=== PATIENT | female | born 1985 | race African-American/Black ===

== ENCOUNTER → 2016-10-09 | Outpatient (CLI) | payer BC | LOC: WI 12:45 | PROVIDERS: ATTEND Registered Nurse General Practice | DX: N63 Unspecified lump in breast (principal); Z80.3 Family history of malignant neoplasm of breast | CPT/HCPCS: 76642; G0204; 77066 ==

== ENCOUNTER 2017-01-09 21:39 | Emergency (ER) | payer BC ==
[2017-01-09] MEDS ORDERED: ASPIRIN 81 MG TABLET, CHEWABLE PO ONE (22:22)
[2017-01-09 22:47] LABS: ABSOLUTE BASOPHILS # (AUTO) 0.1 10^3/uL (0.0-0.2); ABSOLUTE EOSINOPHILS # (AUTO) 0.2 10^3/uL (0.0-0.6); ABSOLUTE LYMPHOCYTES (AUTO) 3.5 10^3/uL (0.5-4.7); ABSOLUTE MONOCYTES (AUTO) 0.9 10^3/uL (0.1-1.4); ABSOLUTE NEUT (AUTO) 7.2 10^3/uL (1.7-8.2); BASOPHILS % (AUTO) 0.7 % (0-2); EOSINOPHILS % (AUTO) 1.4 % (0-6); HEMATOCRIT 39.7 % (36.0-47.0); HEMOGLOBIN 12.7 g/dL (12.0-15.5); HGB HCT DIFFERENCE -1.6; LYMPHOCYTES % (AUTO) 29.2 % (13-45); MEAN CORPUSCULAR HEMOGLOBIN 27.6 pg (27.0-33.4); MEAN CORPUSCULAR VOLUME 86 fl (80-97); RED BLOOD COUNT 4.59 10^6/uL (3.72-5.28); RED CELL DISTRIBUTION WIDTH 15.9 % (11.5-14.0); SEGMENTED NEUTROPHILS % (AUTO) 60.7 % (42-78); WHITE BLOOD COUNT 11.9 10^3/uL (4.0-10.5)
--- NOTE | 2017-01-09 23:03 | RADIOLOGY REPORT (SQ) ---
EXAM DESCRIPTION: CHEST SINGLE VIEW COMPLETED DATE/TIME: 01/09/2017 10:48 pm REASON FOR STUDY: chest pain COMPARISON: 10/11/2015 EXAM PARAMETERS: NUMBER OF VIEWS: One view. TECHNIQUE: Single frontal radiographic view of the chest acquired. RADIATION DOSE: NA LIMITATIONS: None. FINDINGS: LUNGS AND PLEURA: No acute opacities, masses or pneumothorax. No pleural effusion. MEDIASTINUM AND HILAR STRUCTURES: No masses. Contour normal. HEART AND VASCULAR STRUCTURES: Heart normal in size. Normal vasculature. BONES: No acute findings. HARDWARE: None in the chest. OTHER: No other significant finding. IMPRESSION: NO ACUTE RADIOGRAPHIC FINDING IN THE CHEST. TECHNICAL DOCUMENTATION: JOB ID: [id number]
[2017-01-09 23:10] LABS: ALANINE AMINOTRANSFERASE 34 U/L (9-52); ALBUMIN 3.6 g/dL (3.5-5.0); ALKALINE PHOSPHATASE 103 U/L (38-126); ANION GAP 9 (5-19); ASPARTATE AMINO TRANSFERASE 21 U/L (14-36); BILIRUBIN,DIRECT 0.2 mg/dL (0.0-0.4); BILIRUBIN,TOTAL 0.2 mg/dL (0.2-1.3); BLOOD UREA NITROGEN 14 mg/dL (7-20); CALCIUM 9.4 mg/dL (8.4-10.2); CARBON DIOXIDE 26 mmol/L (22-30); CHLORIDE 105 mmol/L (98-107); CREATINE KINASE 207 U/L (30-135); CREATININE RESULT 0.66 mg/dL (0.52-1.25); GLUCOSE 105 mg/dL (75-110); POTASSIUM 3.9 mmol/L (3.6-5.0); SODIUM 139.7 mmol/L (137-145); TOTAL PROTEIN 7.2 g/dL (6.3-8.2)
[2017-01-09 23:22] LABS: CREATINE KINASE MB 0.47 ng/mL (<4.55)
[2017-01-09 23:24] LABS: TROPONIN I < 0.012 ng/mL
--- NOTE | 2017-01-10 00:21 | ER Document Report ---
ED General - General Chief Complaint: Chest Pain Stated Complaint: CHEST PAIN Time Seen by Provider: 01/10/17 00:12 Mode of Arrival: Ambulatory Information source: Patient, Friend TRAVEL OUTSIDE OF THE [place] IN LAST 30 DAYS: No - HPI Notes: Patient is a 31-year-old black female history of insulin resistance presents emergency department with report that she was at dinner having a conversation about her work and was somewhat stressed and anxious while at rest and noticed a 1 minute episode of chest pain that came on at 1900 with resolution and then later again at 2030 she was again talking about work she had the same 1 minute episode of chest pain. She reports no dyspnea, nausea, vomiting, cough, belching, radiation of the pain or back pain. She reports no fever or chills. Patient's non-smoker family history mother age 68 with a stroke no family history of cardiac disease. Patient has history of prediabetic state and asthma. - Related Data Allergies/Adverse Reactions: No Known Allergies Allergy (Verified 11/21/15 17:36) Past Medical History - General Information source: Patient - She - Social History Smoking Status: Never Smoker Frequency of alcohol use: Rare Drug Abuse: None Lives with: Friend Family History: Reviewed & Not Pertinent Patient has suicidal ideation: No Patient has homicidal ideation: No - Past Medical History Cardiac Medical History: Reports: Hx Hypertension Denies: Hx Congestive Heart Failure, Hx Coronary Artery Disease, Hx Heart Attack Pulmonary Medical History: Reports: Hx Asthma Denies: Hx Bronchitis, Hx COPD, Hx Pneumonia, Hx Tuberculosis Neurological Medical History: Denies: Hx Cerebrovascular Accident, Hx Seizures Endocrine Medical History: Reports: Hx Diabetes Mellitus Type 2 Renal/ Medical History: Denies: Hx End Stage Renal Disease, Hx Kidney Stones, Hx Peritoneal Dialysis GI Medical History: Denies: Hx Cirrhosis, Hx Gastroesophageal Reflux Disease, Hx Ulcer Musculoskeltal Medical History: Denies Hx Arthritis, Denies Hx Multiple Sclerosis Psychiatric Medical History: Denies: Hx Bipolar Disorder, Hx Depression, Hx Schizophrenia Past Surgical History: Reports: Hx Gynecologic Surgery - dnc, Hx Oral Surgery - Immunizations Hx Diphtheria, Pertussis, Tetanus Vaccination: Yes Review of Systems - Review of Systems Notes: REVIEW OF SYSTEMS: CONSTITUTIONAL : Denies fever, chills, or sweats. Denies recent illness. EENT: Denies eye, ear, throat, or mouth pain or symptoms. Denies nasal or sinus congestion or discharge. Denies throat, tongue, or mouth swelling or difficulty swallowing. CARDIOVASCULAR: Denies palpitations or racing or irregular heart beat. Denies ankle edema. RESPIRATORY: Denies cough, cold, or chest congestion. Denies shortness of breath, difficulty breathing, or wheezing. GASTROINTESTINAL: Denies abdominal pain or distention. Denies nausea, vomiting , or diarrhea. Denies blood in vomitus, stools, or per rectum. Denies black, tarry stools. Denies constipation. GENITOURINARY: Denies difficulty urinating, painful urination, burning, frequency, blood in urine, or discharge. FEMALE GENITOURINARY: Denies vaginal bleeding, heavy or abnormal periods, irregular periods. Denies vaginal discharge or odor. MUSCULOSKELETAL: Denies back or neck pain or stiffness. Denies joint pain or swelling. SKIN: Denies rash, lesions or sores. HEMATOLOGIC : Denies easy bruising or bleeding. LYMPHATIC: Denies swollen, enlarged glands. NEUROLOGICAL: Denies confusion or altered mental status. Denies passing out or loss of consciousness. Denies dizziness or lightheadedness. Denies headache. Denies weakness or paralysis or loss of use of either side. Denies problems with gait or speech. Denies sensory loss, numbness, or tingling. Denies seizures. PSYCHIATRIC: Denies depression, suicidal ideation, or homicidal ideation. ALL OTHER SYSTEMS REVIEWED AND NEGATIVE. Dictation was performed using [employer] voice recognition software Physical Exam - Vital signs Vitals: Temp Pulse Resp BP Pulse Ox 97.5 F 85 20 134/88 H 100 01/09/17 22:18 01/09/17 22:18 01/09/17 22:18 01/09/17 22:18 01/09/17 22:18 - Notes Notes: PHYSICAL EXAMINATION: GENERAL: Well-appearing, well-nourished and in no acute distress. HEAD: Atraumatic, normocephalic. EYES: Pupils equal round and reactive to light, extraocular movements intact, conjunctiva are normal. ENT: Nares patent, oropharynx clear without exudates. Moist mucous membranes. NECK: Normal range of motion, supple without lymphadenopathy LUNGS: Breath sounds clear to auscultation bilaterally and equal. No wheezes rales or rhonchi. HEART: Regular rate and rhythm without murmurs. Mildly reproducible anterior chest wall pain.. No crepitance or bony deformity. ABDOMEN: Soft, nontender, nondistended abdomen. No guarding, no rebound. No masses appreciated. Female : deferred Musculoskeletal: Normal range of motion, no pitting or edema. No cyanosis. Negative Homans. No palpable cord. NEUROLOGICAL: Cranial nerves grossly intact. Normal speech, normal gait. Normal sensory, motor exams PSYCH: Normal mood, normal affect. SKIN: Warm, Dry, normal turgor, no rashes or lesions noted. Course - Re-evaluation Re-evalutation: 01/10/17 00:45 Patient given Xanax 0.5 mg. 01/10/17 04:36 After Xanax, the patient was relaxed and denies any other further symptoms. No obvious evidence for acute NE or ischemia or electrolyte imbalance or anemia. Patient was ambulatory without complaint. She is otherwise low risk for cardiac ischemia. Findings bit more so with a anxiety component. No evidence for pneumonia or congestive heart failure or suggestion for pulmonary embolus given the transient discomfort which came on at rest 01/10/17 04:53 - Vital Signs Vital signs: Temp Pulse Resp BP Pulse Ox 97.5 F 85 20 134/88 H 100 01/09/17 22:18 01/09/17 22:18 01/09/17 22:18 01/09/17 22:18 01/09/17 22:18 - Laboratory Result Diagrams: 01/09/17 22:30 01/09/17 22:30 Laboratory results interpreted by me: 01/09/17 01/09/17 22:30 22:30 WBC 11.9 H RDW 15.9 H Creatine Kinase 207 H - Diagnostic Test Radiology reviewed: Reports reviewed - EKG Interpretation by Ma EKG shows normal: Sinus rhythm Additional EKG results interpreted by me: 01/10/17 00:46 EKG #1 as interpreted by nh at 2152 showed normal sinus rhythm heart of 87, there was no gross evidence for acute NE or ischemia. There was unchanged inferior T-wave findings with comparison made to previous EKG from 10/15/15. There is no evidence for any change from prior EKG. 01/10/17 02:37 Discharge - Discharge Clinical Impression: Anxiety Chest pain Qualifiers: Chest pain type: unspecified Qualified Code(s): R07.9 - Chest pain, unspecified Disposition: HOME, SELF-CARE Instructions: Chest Pain of Unclear Cause ([facility]), Chest Wall Pain ([facility]), Anxiety ([facility]), Family Physicians / Practices Prescriptions: Alprazolam [Xanax 0.5 mg Tablet] 0.5 mg PO TIDP PRN #20 tablet PRN Reason: Forms: Return to Work
[2017-01-10] MEDS ORDERED: ALPRAZOLAM 0.5 MG TABLET PO ONE (00:41)
[2017-01-10 05:18] VITALS: BP 111/71
--- NOTE | 2017-01-10 07:15 | EKG REPORT ---
SEVERITY:- ABNORMAL ECG - SINUS RHYTHM ABNORMAL T, CONSIDER ISCHEMIA, INFERIOR LEADS : Confirmed by: Porsha Jensen MD 10-Jan-2017 07:14:36
== END 2017-01-10 05:18 | disposition home or self-care (01) ==
LOC: ER 21:39
DX: F41.9 Anxiety disorder, unspecified (principal); R07.89 Other chest pain; J45.909 Unspecified asthma, uncomplicated; I10 Essential (primary) hypertension; E11.9 Type 2 diabetes mellitus without complications
CPT/HCPCS: 36415; 71010; 80053; 82550; 82553; 84484; 84703; 85025; 93005; 93010; 99285

== ENCOUNTER 2017-08-03 10:59 | Emergency (ER) | payer BC ==
[2017-08-03] MEDS ORDERED: OXYCODONE-ACETAMINOPHEN 5-325 MG TABLET PO ONE (11:11)
--- NOTE | 2017-08-03 11:12 | ER Document Report ---
ED Medical Screen (RME) - General Chief Complaint: Abdominal Pain Stated Complaint: ABDOMINAL PAIN Time Seen by Provider: 08/03/17 11:10 Information source: Patient Notes: 32-year-old female who presents today with the onset this morning of some suprapubic and epigastric nonradiating abdominal "tenderness". She also states some white back pain. She denies any dysuria. She states nausea without vomiting or diarrhea. She denies any fevers. On limited examination the patient has no obvious focal tenderness to the abdomen. No rebound or guarding present. No obvious back swelling or CVA tenderness. TRAVEL OUTSIDE OF THE [place] IN LAST 30 DAYS: No - Related Data Allergies/Adverse Reactions: No Known Allergies Allergy (Verified 08/03/17 11:00) Past Medical History - Past Medical History Cardiac Medical History: Reports: Hx Hypertension Denies: Hx Congestive Heart Failure, Hx Coronary Artery Disease, Hx Heart Attack Pulmonary Medical History: Reports: Hx Asthma Denies: Hx Bronchitis, Hx COPD, Hx Pneumonia, Hx Tuberculosis Neurological Medical History: Denies: Hx Cerebrovascular Accident, Hx Seizures Endocrine Medical History: Reports: Hx Diabetes Mellitus Type 2 Renal/ Medical History: Denies: Hx End Stage Renal Disease, Hx Kidney Stones, Hx Peritoneal Dialysis GI Medical History: Denies: Hx Cirrhosis, Hx Gastroesophageal Reflux Disease, Hx Ulcer Musculoskeltal Medical History: Denies Hx Arthritis, Denies Hx Multiple Sclerosis Psychiatric Medical History: Denies: Hx Bipolar Disorder, Hx Depression, Hx Schizophrenia Past Surgical History: Reports: Hx Gynecologic Surgery - dnc, Hx Oral Surgery - Immunizations Hx Diphtheria, Pertussis, Tetanus Vaccination: Yes Physical Exam - Vital signs Vitals: Temp Pulse Resp BP Pulse Ox 98.5 F 107 H 20 142/87 H 98 08/03/17 11:01 08/03/17 11:01 08/03/17 11:01 08/03/17 11:01 08/03/17 11:01 Course - Vital Signs Vital signs: Temp Pulse Resp BP Pulse Ox 98.5 F 107 H 20 142/87 H 98 08/03/17 11:01 08/03/17 11:01 08/03/17 11:01 08/03/17 11:01 08/03/17 11:01
[2017-08-03 12:00] LABS: ABSOLUTE LYMPHOCYTES (AUTO) 1.3 10^3/uL (0.5-4.7); ABSOLUTE MONOCYTES (AUTO) 0.6 10^3/uL (0.1-1.4); ABSOLUTE NEUT (AUTO) 7.4 10^3/uL (1.7-8.2); BASOPHILS % (AUTO) 0.2 % (0-2); EOSINOPHILS % (AUTO) 0.5 % (0-6); HEMATOCRIT 43.7 % (36.0-47.0); HEMOGLOBIN 14.5 g/dL (12.0-15.5); LYMPHOCYTES % (AUTO) 13.8 % (13-45); MEAN CORPUSCULAR HEMOGLOBIN 28.7 pg (27.0-33.4); MEAN CORPUSCULAR HGB CONC 33.2 g/dL (32.0-36.0); MEAN CORPUSCULAR VOLUME 86 fl (80-97); MONOCYTES % (AUTO) 6.2 % (3-13); PLATELET COUNT 336 10^3/uL (150-450); RED BLOOD COUNT 5.06 10^6/uL (3.72-5.28); RED CELL DISTRIBUTION WIDTH 14.9 % (11.5-14.0); SEGMENTED NEUTROPHILS % (AUTO) 79.3 % (42-78); TOTAL CELLS COUNTED % (AUTO) 100 %; WHITE BLOOD COUNT 9.3 10^3/uL (4.0-10.5)
[2017-08-03 12:07] LABS: APPEARANCE,URINE CLOUDY; BILIRUBIN,URINE NEGATIVE (NEGATIVE); COLOR,URINE YELLOW; GLUCOSE, URINE NEGATIVE (NEGATIVE); KETONES,URINE NEGATIVE (NEGATIVE); LEUKOCYTE ESTERASE,URINE NEGATIVE (NEGATIVE); NITRITE,URINE NEGATIVE (NEGATIVE); PROTEIN,URINE 30 mg/dL (NEGATIVE); URINE SPECIFIC GRAVITY 1.024; UROBILINOGEN,URINE NEGATIVE mg/dL (<2.0)
[2017-08-03] MEDS ORDERED: CIPROFLOXACIN HCL 500 MG TABLET PO ONE (12:42)
--- NOTE | 2017-08-03 12:56 | RADIOLOGY REPORT (SQ) ---
EXAM DESCRIPTION: CT LTD RENAL STONE PROTOCOL ON COMPLETED DATE/TIME: 08/03/2017 12:45 pm REASON FOR STUDY: flank pain , hematuria COMPARISON: None. TECHNIQUE: CT scan of the abdomen and pelvis performed without intravenous or oral contrast. Images reviewed with lung, soft tissue, and bone windows. Reconstructed coronal and sagittal MPR images revi ewed. All images stored on PACS. All CT scanners at this facility use dose modulation, iterative reconstruction, and/or weight based d osing when appropriate to reduce radiation dose to as low as reasonably achievable (ALARA). [facility]: Dose Right [facility]: CareDose [facility]: Dose Right [facility]: Teradose 4D [facility]: [employer] RADIATION DOSE: CT Rad equipment meets quality standard of care and radiation dose reduction techniq ues were employed. CTDIvol: 15.1 mGy. DLP: 864 mGy-cm.mGy. LIMITATIONS: None. FINDINGS: LOWER CHEST: No significant findings. No nodules or infiltrates. NON-CONTRASTED LIVER, SPLEEN, ADRENALS: Evaluation limited by lack of IV contrast. No identified sign ificant masses. PANCREAS: No masses. No peripancreatic inflammatory changes. GALLBLADDER: No identified stones by CT criteria. No inflammatory changes to suggest cholecystitis. RIGHT KIDNEY AND URETER: No masses. Renal edema and perinephric stranding. No significant calcific ations. Minimal hydronephrosis. LEFT KIDNEY AND URETER: No suspicious masses. Assessment limited by lack of IV contrast. No signifi cant calcifications. No hydronephrosis or hydroureter. AORTA AND RETROPERITONEUM: No aneurysm. No retroperitoneal masses or adenopathy. BOWEL AND PERITONEAL CAVITY: No obvious masses or inflammatory changes. No free fluid. APPENDIX: Normal. PELVIS, BLADDER, AND ABDOMINAL WALL:No abnormal masses. No free fluid. Bladder normal. BONES: No significant findings. OTHER: No other significant finding. IMPRESSION: There is perinephric stranding and renal edema on the right with very mild hydronephrosi s. No identified calcification in the urinary tract. Etiology of obstruction not identified. COMMENT: Quality ID # [id number]: Final reports with documentation of one or more dose reduction techniques (e.g., Automated exposure control, adjustment of the mA and/or kV according to patient size, use of iterative reconstruction technique) TECHNICAL DOCUMENTATION: JOB ID: [id number]- All Rights Reserved
--- NOTE | 2017-08-03 12:59 | ER Document Report ---
ED General - General Chief Complaint: Abdominal Pain Stated Complaint: ABDOMINAL PAIN Time Seen by Provider: 08/03/17 11:10 Mode of Arrival: Ambulatory Information source: Patient Notes: 32-year-old female presents with complaints of right flank pain suprapubic pain nausea vomiting. Patient's notes the symptoms started yesterday. She does admit to foul-smelling urine of 2 week duration. She denies any fevers. Patient denies any previous similar episodes. TRAVEL OUTSIDE OF THE [place] IN LAST 30 DAYS: No - HPI Onset: Yesterday Onset/Duration: Persistent, Worse Quality of pain: Achy, Burning Severity: Mild Pain Level: 1 Associated symptoms: Nausea, Vomiting Exacerbated by: Other - Urination Relieved by: Denies Similar symptoms previously: No Recently seen / treated by doctor: No - Related Data Allergies/Adverse Reactions: No Known Allergies Allergy (Verified 08/03/17 11:00) Past Medical History - General Information source: Patient - Social History Smoking Status: Never Smoker Cigarette use (# per day): No Chew tobacco use (# tins/day): No Smoking Education Provided: No Frequency of alcohol use: None Drug Abuse: None Family History: Reviewed & Not Pertinent Patient has suicidal ideation: No Patient has homicidal ideation: No - Past Medical History Cardiac Medical History: Reports: Hx Hypertension Denies: Hx Congestive Heart Failure, Hx Coronary Artery Disease, Hx Heart Attack Pulmonary Medical History: Reports: Hx Asthma Denies: Hx Bronchitis, Hx COPD, Hx Pneumonia, Hx Tuberculosis Neurological Medical History: Denies: Hx Cerebrovascular Accident, Hx Seizures Endocrine Medical History: Reports: Hx Diabetes Mellitus Type 2 Renal/ Medical History: Denies: Hx End Stage Renal Disease, Hx Kidney Stones, Hx Peritoneal Dialysis GI Medical History: Denies: Hx Cirrhosis, Hx Gastroesophageal Reflux Disease, Hx Ulcer Musculoskeltal Medical History: Denies Hx Arthritis, Denies Hx Multiple Sclerosis Psychiatric Medical History: Denies: Hx Bipolar Disorder, Hx Depression, Hx Schizophrenia Past Surgical History: Reports: Hx Gynecologic Surgery - dnc, Hx Oral Surgery - Immunizations Hx Diphtheria, Pertussis, Tetanus Vaccination: Yes Review of Systems - Review of Systems Notes: REVIEW OF SYSTEMS: CONSTITUTIONAL : Denies fever, chills, or sweats. Denies recent illness. EENT: Denies eye, ear, throat, or mouth pain or symptoms. Denies nasal or sinus congestion or discharge. Denies throat, tongue, or mouth swelling or difficulty swallowing. CARDIOVASCULAR: Denies chest pain. Denies palpitations or racing or irregular heart beat. Denies ankle edema. RESPIRATORY: Denies cough, cold, or chest congestion. Denies shortness of breath, difficulty breathing, or wheezing. GASTROINTESTINAL: Admits to nausea vomiting flank pain GENITOURINARY: Admits to burning with urination FEMALE GENITOURINARY: Denies vaginal bleeding, heavy or abnormal periods, irregular periods. Denies vaginal discharge or odor. MUSCULOSKELETAL: Denies back or neck pain or stiffness. Denies joint pain or swelling. SKIN: Denies rash, lesions or sores. HEMATOLOGIC : Denies easy bruising or bleeding. LYMPHATIC: Denies swollen, enlarged glands. NEUROLOGICAL: Denies confusion or altered mental status. Denies passing out or loss of consciousness. Denies dizziness or lightheadedness. Denies headache. Denies weakness or paralysis or loss of use of either side. Denies problems with gait or speech. Denies sensory loss, numbness, or tingling. Denies seizures. PSYCHIATRIC: Denies anxiety or stress. Denies depression, suicidal ideation, or homicidal ideation. ALL OTHER SYSTEMS REVIEWED AND NEGATIVE. PHYSICAL EXAMINATION: GENERAL: Well-appearing, well-nourished and in no acute distress. HEAD: Atraumatic, normocephalic. EYES: Pupils equal round and reactive to light, extraocular movements intact, conjunctiva are normal. ENT: Nares patent, oropharynx clear without exudates. Moist mucous membranes. NECK: Normal range of motion, supple without lymphadenopathy LUNGS: Breath sounds clear to auscultation bilaterally and equal. No wheezes rales or rhonchi. HEART: Regular rate and rhythm without murmurs ABDOMEN: Soft, mild suprapubic tenderness right flank pain Female : deferred Musculoskeletal: Normal range of motion, no pitting or edema. No cyanosis. NEUROLOGICAL: Cranial nerves grossly intact. Normal speech, normal gait. Normal sensory, motor exams PSYCH: Normal mood, normal affect. SKIN: Warm, Dry, normal turgor, no rashes or lesions noted. Dictation was performed using [employer] voice recognition software Physical Exam - Vital signs Vitals: Temp Pulse Resp BP Pulse Ox 98.5 F 107 H 20 142/87 H 98 08/03/17 11:01 08/03/17 11:01 08/03/17 11:01 08/03/17 11:01 08/03/17 11:01 Course - Re-evaluation Re-evalutation: 08/03/17 14:[address] Patient was sent for CT given the amount of blood that I saw, mild pyelonephritis is noted on the CT, overall patient looks well will be treated for pyelonephritis Very strict return precautions have been provided to the patient was she and family member stated understanding will return if there are any other concerns After performing a Medical Screening Examination, I estimate there is LOW risk for ACUTE APPENDICITIS, BOWEL OBSTRUCTION, ACUTE CHOLECYSTITIS, PERFORATED DIVERTICULITIS, INCARCERATED HERNIA, PANCREATITIS, PELVIC INFLAMMATORY DISEASE, PERFORATED ULCER, ECTOPIC , or TUBO-OVARIAN ABSCESS, thus I consider the discharge disposition reasonable. Also, there is no evidence or peritonitis , sepsis, or toxicity. I have reevaluated this patient multiple times and no significant life threatening changes are noted. The patient and I have discussed the diagnosis and risks, and we agree with discharging home with close follow-up with the understanding that symptoms and presentations can change. We also discussed returning to the Emergency Department immediately if new or worsening symptoms occur. We have discussed the symptoms which are most concerning (e.g., bloody stool, fever, changing or worsening pain, vomiting) that necessitate immediate return. - Vital Signs Vital signs: Temp Pulse Resp BP Pulse Ox 98.5 F 99 19 149/98 H 100 08/03/17 11:01 08/03/17 13:07 08/03/17 13:07 08/03/17 13:07 08/03/17 13:07 - Laboratory Result Diagrams: 08/03/17 11:35 08/03/17 11:35 Laboratory results interpreted by me: 08/03/17 08/03/17 11:35 11:35 RDW 14.9 H Seg Neutrophils % 79.3 H Urine Protein 30 H Urine Blood LARGE H - Diagnostic Test Radiology reviewed: Image reviewed, Reports reviewed Discharge - Discharge Clinical Impression: Pyelonephritis Nausea & vomiting Qualifiers: Vomiting type: unspecified Vomiting Intractability: non-intractable Qualified Code(s): R11.2 - Nausea with vomiting, unspecified Condition: Stable Disposition: HOME, SELF-CARE Instructions: Pyelonephritis ([facility]) Additional Instructions: Follow up with your physician tomorrow for further care or return to the ED IMMEDIATELY if symptoms worsen or new concerns occur. If you cannot afford to follow up with your primary care physician a list of low cost clinics have been provided at the end of your discharge papers as well. Prescriptions: Ciprofloxacin HCl [Cipro 500 mg Tablet] 500 mg PO BID #20 tablet Hydrocodone/Acetaminophen [Downing 5-325 mg Tablet] 1 tab PO Q6 #10 tablet Metoclopramide HCl [Reglan 10 mg Tablet] 1 - 2 tab PO ASDIR PRN #14 tablet PRN Reason:
[2017-08-03 13:11] VITALS: BP 149/98
== END 2017-08-03 13:11 | disposition home or self-care (01) ==
LOC: ER 10:59
DX: N12 Tubulo-interstitial nephritis, not specified as acute or chronic (principal); R11.2 Nausea with vomiting, unspecified; R10.9 Unspecified abdominal pain; R39.89 Other symptoms and signs involving the genitourinary system; I10 Essential (primary) hypertension; J45.909 Unspecified asthma, uncomplicated; E11.9 Type 2 diabetes mellitus without complications
CPT/HCPCS: 36415; 76380; 81001; 81025; 85025; 99284

== ENCOUNTER 2017-08-16 01:20 | Emergency (ER) | payer BC ==
[2017-08-16 03:21] LABS: ABSOLUTE BASOPHILS # (AUTO) 0.1 10^3/uL (0.0-0.2); ABSOLUTE EOSINOPHILS # (AUTO) 0.3 10^3/uL (0.0-0.6); ABSOLUTE LYMPHOCYTES (AUTO) 3.1 10^3/uL (0.5-4.7); ABSOLUTE NEUT (AUTO) 5.8 10^3/uL (1.7-8.2); BASOPHILS % (AUTO) 0.8 % (0-2); HEMATOCRIT 43.6 % (36.0-47.0); HEMOGLOBIN 14.4 g/dL (12.0-15.5); LYMPHOCYTES % (AUTO) 30.2 % (13-45); MEAN CORPUSCULAR HEMOGLOBIN 28.5 pg (27.0-33.4); MEAN CORPUSCULAR HGB CONC 32.9 g/dL (32.0-36.0); MEAN CORPUSCULAR VOLUME 87 fl (80-97); PLATELET COUNT 415 10^3/uL (150-450); RED BLOOD COUNT 5.04 10^6/uL (3.72-5.28); RED CELL DISTRIBUTION WIDTH 14.3 % (11.5-14.0); TOTAL CELLS COUNTED % (AUTO) 100 %; WHITE BLOOD COUNT 10.4 10^3/uL (4.0-10.5)
[2017-08-16 03:32] LABS: ALANINE AMINOTRANSFERASE 30 U/L (9-52); ALBUMIN 4.1 g/dL (3.5-5.0); ALKALINE PHOSPHATASE 108 U/L (38-126); ANION GAP 9 (5-19); ASPARTATE AMINO TRANSFERASE 25 U/L (14-36); BLOOD UREA NITROGEN 10 mg/dL (7-20); CARBON DIOXIDE 32 mmol/L (22-30); CHLORIDE 101 mmol/L (98-107); GLUCOSE 83 mg/dL (75-110); POTASSIUM 4.1 mmol/L (3.6-5.0); SODIUM 141.9 mmol/L (137-145); TOTAL PROTEIN 7.5 g/dL (6.3-8.2)
[2017-08-16 03:35] LABS: BILIRUBIN,TOTAL < 0.1 mg/dL (0.2-1.3)
[2017-08-16 03:39] LABS: APPEARANCE,URINE SLIGHTLY-CLOUDY; BILIRUBIN,URINE NEGATIVE (NEGATIVE); COLOR,URINE YELLOW; GLUCOSE, URINE NEGATIVE (NEGATIVE); KETONES,URINE NEGATIVE (NEGATIVE); LEUKOCYTE ESTERASE,URINE SMALL (NEGATIVE); NITRITE,URINE NEGATIVE (NEGATIVE); PROTEIN,URINE NEGATIVE (NEGATIVE); URINE SPECIFIC GRAVITY 1.011; UROBILINOGEN,URINE NEGATIVE mg/dL (<2.0)
--- NOTE | 2017-08-16 03:52 | ER Document Report ---
ED General - General Chief Complaint: Weakness Stated Complaint: WEAKNESS Time Seen by Provider: 08/16/17 01:59 Mode of Arrival: Ambulatory Information source: Patient Notes: 32-year-old female who 1 week ago was treated for pyelonephritis presents with complaints of high blood pressure. Patient's diastolic was noted to be over 100 , patient notes her flank pain has resolved that she overall feels well but her family member was concerned about her blood pressure TRAVEL OUTSIDE OF THE [place] IN LAST 30 DAYS: No - HPI Onset: Just prior to arrival Onset/Duration: Sudden Quality of pain: No pain Severity: None Pain Level: Denies Associated symptoms: Weakness Exacerbated by: Denies Relieved by: Denies Similar symptoms previously: Yes Recently seen / treated by doctor: Yes - Related Data Allergies/Adverse Reactions: No Known Allergies Allergy (Verified 08/16/17 01:21) Past Medical History - Social History Smoking Status: Smoker,Current Status Unk Cigarette use (# per day): Yes Chew tobacco use (# tins/day): No Smoking Education Provided: No Drug Abuse: None Family History: Reviewed & Not Pertinent Patient has suicidal ideation: No Patient has homicidal ideation: No - Past Medical History Cardiac Medical History: Reports: Hx Hypertension Denies: Hx Congestive Heart Failure, Hx Coronary Artery Disease, Hx Heart Attack Pulmonary Medical History: Reports: Hx Asthma Denies: Hx Bronchitis, Hx COPD, Hx Pneumonia, Hx Tuberculosis Neurological Medical History: Denies: Hx Cerebrovascular Accident, Hx Seizures Endocrine Medical History: Reports: Hx Diabetes Mellitus Type 2 Renal/ Medical History: Denies: Hx End Stage Renal Disease, Hx Kidney Stones, Hx Peritoneal Dialysis GI Medical History: Denies: Hx Cirrhosis, Hx Gastroesophageal Reflux Disease, Hx Ulcer Musculoskeltal Medical History: Denies Hx Arthritis, Denies Hx Multiple Sclerosis Psychiatric Medical History: Denies: Hx Bipolar Disorder, Hx Depression, Hx Schizophrenia Past Surgical History: Reports: Hx Gynecologic Surgery - dnc, Hx Oral Surgery - Immunizations Hx Diphtheria, Pertussis, Tetanus Vaccination: Yes Review of Systems - Review of Systems Notes: REVIEW OF SYSTEMS: CONSTITUTIONAL : Denies fever, chills, or sweats. Denies recent illness. EENT: Denies eye, ear, throat, or mouth pain or symptoms. Denies nasal or sinus congestion or discharge. Denies throat, tongue, or mouth swelling or difficulty swallowing. CARDIOVASCULAR: Denies chest pain. Denies palpitations or racing or irregular heart beat. Denies ankle edema. RESPIRATORY: Denies cough, cold, or chest congestion. Denies shortness of breath, difficulty breathing, or wheezing. GASTROINTESTINAL: Denies abdominal pain or distention. Denies nausea, vomiting , or diarrhea. Denies blood in vomitus, stools, or per rectum. Denies black, tarry stools. Denies constipation. GENITOURINARY: Denies difficulty urinating, painful urination, burning, frequency, blood in urine, or discharge. FEMALE GENITOURINARY: Denies vaginal bleeding, heavy or abnormal periods, irregular periods. Denies vaginal discharge or odor. MUSCULOSKELETAL: Denies back or neck pain or stiffness. Denies joint pain or swelling. SKIN: Denies rash, lesions or sores. HEMATOLOGIC : Denies easy bruising or bleeding. LYMPHATIC: Denies swollen, enlarged glands. NEUROLOGICAL: Admits to weakness PSYCHIATRIC: Denies anxiety or stress. Denies depression, suicidal ideation, or homicidal ideation. ALL OTHER SYSTEMS REVIEWED AND NEGATIVE. PHYSICAL EXAMINATION: GENERAL: Well-appearing, well-nourished and in no acute distress. HEAD: Atraumatic, normocephalic. EYES: Pupils equal round and reactive to light, extraocular movements intact, conjunctiva are normal. ENT: Nares patent, oropharynx clear without exudates. Moist mucous membranes. NECK: Normal range of motion, supple without lymphadenopathy LUNGS: Breath sounds clear to auscultation bilaterally and equal. No wheezes rales or rhonchi. HEART: Regular rate and rhythm without murmurs ABDOMEN: Soft, nontender, nondistended abdomen. No guarding, no rebound. No masses appreciated. Female : deferred Musculoskeletal: Normal range of motion, no pitting or edema. No cyanosis. NEUROLOGICAL: Cranial nerves grossly intact. Normal speech, normal gait. Normal sensory, motor exams PSYCH: Normal mood, normal affect. SKIN: Warm, Dry, normal turgor, no rashes or lesions noted. Dictation was performed using [employer] voice recognition software Physical Exam - Vital signs Vitals: Temp Pulse Resp BP 98.5 F 120 H 18 129/104 H 08/16/17 01:21 08/16/17 01:21 08/16/17 01:21 08/16/17 01:21 Course - Re-evaluation Re-evalutation: 08/16/17 03:51 Patient looks extremely well is in no distress, lab work noted no acute abnormality either. Patient will be discharged home with follow-up with primary care physician for her blood pressure. Her urinalysis shows minimal signs of infection the patient otherwise has no fevers After performing a Medical Screening Examination, I estimate there is LOW risk for ACUTE APPENDICITIS, BOWEL OBSTRUCTION, ACUTE CHOLECYSTITIS, PERFORATED DIVERTICULITIS, INCARCERATED HERNIA, PANCREATITIS, PELVIC INFLAMMATORY DISEASE, PERFORATED ULCER, ECTOPIC , or TUBO-OVARIAN ABSCESS, thus I consider the discharge disposition reasonable. Also, there is no evidence or peritonitis , sepsis, or toxicity. I have reevaluated this patient multiple times and no significant life threatening changes are noted. The patient and I have discussed the diagnosis and risks, and we agree with discharging home with close follow-up with the understanding that symptoms and presentations can change. We also discussed returning to the Emergency Department immediately if new or worsening symptoms occur. We have discussed the symptoms which are most concerning (e.g., bloody stool, fever, changing or worsening pain, vomiting) that necessitate immediate return. - Vital Signs Vital signs: Temp Pulse Resp BP Pulse Ox 98.5 F 120 H 18 129/104 H 08/16/17 01:21 08/16/17 01:21 08/16/17 01:21 08/16/17 01:21 - Laboratory Result Diagrams: 08/16/17 03:00 08/16/17 03:00 Laboratory results interpreted by me: 08/16/17 08/16/17 08/16/17 03:00 03:00 03:00 RDW 14.3 H Carbon Dioxide 32 H Total Bilirubin < 0.1 L Urine Blood MODERATE H Ur Leukocyte Esterase SMALL H Discharge - Discharge Clinical Impression: Generalized muscle weakness HTN (hypertension) Qualifiers: Hypertension type: essential hypertension Qualified Code(s): I10 - Essential ( primary) hypertension Condition: Stable Disposition: HOME, SELF-CARE Instructions: High Blood Pressure ([facility]) Additional Instructions: Follow up with your physician tomorrow for further care or return to the ED IMMEDIATELY if symptoms worsen or new concerns occur. If you cannot afford to follow up with your primary care physician a list of low cost clinics have been provided at the end of your discharge papers as well.
[2017-08-16 04:02] VITALS: BP 139/90
== END 2017-08-16 04:07 | disposition home or self-care (01) ==
LOC: ER 01:20
DX: R53.1 Weakness (principal); I10 Essential (primary) hypertension; F17.210 Nicotine dependence, cigarettes, uncomplicated
CPT/HCPCS: 36415; 80053; 81001; 85025; 99285

== ENCOUNTER 2018-03-23 22:58 | Emergency (ER) | payer BC ==
[2018-03-24 00:57] LABS: ALANINE AMINOTRANSFERASE 27 U/L (9-52); ALKALINE PHOSPHATASE 108 U/L (38-126); ANION GAP 11 (5-19); ASPARTATE AMINO TRANSFERASE 35 U/L (14-36); BILIRUBIN,DIRECT 0.2 mg/dL (0.0-0.4); BILIRUBIN,TOTAL 0.5 mg/dL (0.2-1.3); BLOOD UREA NITROGEN 12 mg/dL (7-20); CALCIUM 9.1 mg/dL (8.4-10.2); CARBON DIOXIDE 27 mmol/L (22-30); CHLORIDE 99 mmol/L (98-107); GLUCOSE 109 mg/dL (75-110); LIPASE 47.3 U/L (23-300); POTASSIUM 3.6 mmol/L (3.6-5.0); SODIUM 136.7 mmol/L (137-145); TOTAL PROTEIN 8.1 g/dL (6.3-8.2)
[2018-03-24 01:56] LABS: ABSOLUTE BASOPHILS # (AUTO) 0.1 10^3/uL (0.0-0.2); ABSOLUTE EOSINOPHILS # (AUTO) 0.1 10^3/uL (0.0-0.6); ABSOLUTE LYMPHOCYTES (AUTO) 2.6 10^3/uL (0.5-4.7); ABSOLUTE NEUT (AUTO) 7.5 10^3/uL (1.7-8.2); BASOPHILS % (AUTO) 0.8 % (0-2); EOSINOPHILS % (AUTO) 0.7 % (0-6); LYMPHOCYTES % (AUTO) 22.7 % (13-45); MEAN CORPUSCULAR HEMOGLOBIN 28.6 pg (27.0-33.4); MEAN CORPUSCULAR HGB CONC 33.4 g/dL (32.0-36.0); MEAN CORPUSCULAR VOLUME 86 fl (80-97); MONOCYTES % (AUTO) 8.8 % (3-13); PLATELET COUNT 313 10^3/uL (150-450); RED BLOOD COUNT 5.26 10^6/uL (3.72-5.28); RED CELL DISTRIBUTION WIDTH 15.2 % (11.5-14.0); TOTAL CELLS COUNTED % (AUTO) 100 %; WHITE BLOOD COUNT 11.3 10^3/uL (4.0-10.5)
--- NOTE | 2018-03-24 02:08 | ER Document Report ---
ED General - General Chief Complaint: Nausea Stated Complaint: LEG AND FEET CRAMPS Time Seen by Provider: 03/23/18 23:46 Notes: Patient is a 32-year-old female with a past medical history of non-insulin- dependent diabetes, morbid obesity, recently started on metformin and phentermine who presents with multiple complaints. The patient states within several hours of initiating these medications she began to develop abdominal cramping, nausea, diarrhea, body cramping, muscle aches and fatigue. She states that the symptoms have been ongoing since initiation of these medications. She also states that she feels like she constantly has dry mouth. She denies a history of similar symptoms in the past. Nothing improves or worsens her symptoms. She has been unable to contact the prescribing physician as it is the weekend. She denies any syncope, shortness of breath, focal weakness or numbness, headache, fever. TRAVEL OUTSIDE OF THE [place] IN LAST 30 DAYS: No - Related Data Allergies/Adverse Reactions: No Known Allergies Allergy (Verified 08/16/17 01:21) Past Medical History - General Information source: Patient - Social History Smoking Status: Former Smoker Chew tobacco use (# tins/day): No Frequency of alcohol use: None Drug Abuse: None Lives with: Spouse/Significant other Family History: Reviewed & Not Pertinent Patient has suicidal ideation: No Patient has homicidal ideation: No - Past Medical History Cardiac Medical History: Reports: Hx Hypertension Denies: Hx Congestive Heart Failure, Hx Coronary Artery Disease, Hx Heart Attack Pulmonary Medical History: Reports: Hx Asthma Denies: Hx Bronchitis, Hx COPD, Hx Pneumonia, Hx Tuberculosis Neurological Medical History: Denies: Hx Cerebrovascular Accident, Hx Seizures Endocrine Medical History: Reports: Hx Diabetes Mellitus Type 2 Renal/ Medical History: Denies: Hx End Stage Renal Disease, Hx Kidney Stones, Hx Peritoneal Dialysis GI Medical History: Denies: Hx Cirrhosis, Hx Gastroesophageal Reflux Disease, Hx Ulcer Musculoskeletal Medical History: Denies Hx Arthritis, Denies Hx Multiple Sclerosis Psychiatric Medical History: Denies: Hx Bipolar Disorder, Hx Depression, Hx Schizophrenia Past Surgical History: Reports: Hx Gynecologic Surgery - dnc, Hx Oral Surgery - Immunizations Hx Diphtheria, Pertussis, Tetanus Vaccination: Yes Review of Systems - Review of Systems Notes: Constitutional: Negative for fever. Positive for fatigue HENT: Negative for sore throat. Eyes: Negative for visual changes. Cardiovascular: Negative for chest pain. Respiratory: Negative for shortness of breath. Gastrointestinal: Positive for abdominal cramping, nausea and diarrhea Genitourinary: Negative for dysuria. Musculoskeletal: Negative for back pain. Skin: Negative for rash. Neurological: Negative for headaches, weakness or numbness. 10 point ROS negative except as marked above and in HPI. Physical Exam - Vital signs Interpretation: Normal Notes: PHYSICAL EXAMINATION: GENERAL: Well-appearing, well-nourished and in no acute distress. HEAD: Atraumatic, normocephalic. EYES: Pupils equal round and reactive to light, extraocular movements intact, sclera anicteric, conjunctiva are normal. ENT: nares patent, oropharynx clear without exudates. Moderately dry mucous membranes. NECK: Normal range of motion, supple without lymphadenopathy LUNGS: Breath sounds clear to auscultation bilaterally and equal. No wheezes rales or rhonchi. HEART: Regular rate and rhythm without murmurs ABDOMEN: Soft, nontender, normoactive bowel sounds. No guarding, no rebound. No masses appreciated. EXTREMITIES: Normal range of motion, no pitting or edema. No cyanosis. NEUROLOGICAL: No focal neurological deficits. Moves all extremities spontaneously and on command. PSYCH: Normal mood, normal affect. SKIN: Warm, Dry, normal turgor, no rashes or lesions noted. Course - Re-evaluation Re-evalutation: 03/24/18 02:08 Patient presents with multiple vague complaints that did not appear to be concerning for any acute life-threatening pathology. Vitals are within normal limits at triage and at time of discharge. Physical examination is unremarkable. Patient has tolerated oral intake without difficulty. Patient was not noted to be in distress at any point during their ER visit. At this time, based on the reassuring evaluation, I do not suspect an acute AR, pulmonary embolus, aortic dissection, acute intra-abdominal pathology, stroke, or sepsis. Patient's symptoms appear to most likely related to recently starting the phentermine and metformin. I have advised her to discontinue phentermine immediately and have advised healthy diet and exercise in place of this medication. Will discharge with return precautions and follow-up recommendations. Verbal discharge instructions given a the bedside and opportunity for questions given. Medication warnings reviewed. Patient is in agreement with this plan and has verbalized understanding of return precautions and the need for primary care follow-up in the next 24-72 hours. - Laboratory Result Diagrams: 03/24/18 01:47 03/24/18 00:26 Laboratory results interpreted by me: 03/24/18 03/24/18 00:26 01:47 WBC 11.3 H RDW 15.2 H Sodium 136.7 L Discharge - Discharge Clinical Impression: Multiple complaints, Nausea Phentermine adverse reaction Qualifiers: Encounter type: initial encounter Qualified Code(s): T50.5X5A - Adverse effect of appetite depressants, initial encounter Diarrhea Qualifiers: Diarrhea type: unspecified type Qualified Code(s): R19.7 - Diarrhea, unspecified Condition: Good Disposition: HOME, SELF-CARE Additional Instructions: Discontinue phentermine as this medication is not required to lose weight. Your obesity will result in a shorter life and serious diagnoses including heart attacks, stroke, diabetes, high blood pressure, high cholesterol, kidney failure , and will also result in a much less enjoyable life due to these chronic conditions. Focus on gradual life style changes including removing sugared beverages and processed foods from your diet and at least 30 minutes of moderate activity daily. Try to target 4-5lbs of weight loss per month. The diarrhea and abdominal cramping that you are having associated with metformin generally takes several weeks to completely resolve. Please return to the emergency room immediately if you experience any concerning symptoms including high fevers, severe headache, chest pain, difficulty breathing, abdominal pain, slurred speech, numbness or weakness in your arms or legs, or any other symptom that concerns you. Forms: Return to Work Referrals: LEONELA JACOBS PA-C [Primary Care Provider] - Follow up as needed
[2018-03-24 03:10] VITALS: BP 141/94
== END 2018-03-24 03:11 | disposition home or self-care (01) ==
LOC: ER 22:58
DX: R11.0 Nausea (principal); T50.5X5A Adverse effect of appetite depressants, initial encounter; X58.XXXA Exposure to other specified factors, initial encounter; E66.01 Morbid (severe) obesity due to excess calories; R19.7 Diarrhea, unspecified; E11.9 Type 2 diabetes mellitus without complications; I10 Essential (primary) hypertension; Z79.84 Long term (current) use of oral hypoglycemic drugs
CPT/HCPCS: 36415; 80053; 83690; 85025; 99284

== ENCOUNTER 2018-07-21 16:58 | Emergency (ER) | payer BC, OTHER ==
[2018-07-21 19:00] VITALS: BP 145/85
[2018-07-21] MEDS ORDERED: LORATADINE 10 MG TABLET PO ONE (19:07)
[2018-07-21] MEDS ORDERED: GUAIFENESIN 600 MG TABLET.SA PO ONE (19:07)
[2018-07-21] MEDS ORDERED: IBUPROFEN 800 MG TABLET PO ONE (19:07)
--- NOTE | 2018-07-21 19:11 | ER Document Report ---
ED Respiratory Problem - General Chief Complaint: Chest Congestion Stated Complaint: SHORTNESS OF BREATH,COUGH,CONGESTION Time Seen by Provider: 07/21/18 18:36 Mode of Arrival: Ambulatory Information source: Patient Notes: 33-year-old female presented to ED for complaint of body aches chills chest aches shortness of breath congestion cough times 2 days. She states that her chest is uncomfortable when she coughs. She states her roommates all have URIs. She is alert and oriented respirations regular and unlabored speaking in full sentences. Patient is in no acute distress. Patient was demanding a blanket as soon as I walked in the room. TRAVEL OUTSIDE OF THE [place] IN LAST 30 DAYS: No - HPI Patient complains to provider of: Cough Onset: Other - 2 days Initiating Event: URI Quality of pain: Achy Severity: Mild Pain Level: 2 Context: Smoker Cough: Nonproductive Associated symptoms: Chest pain/discomfort, Congestion, Cough, PND, Runny nose, Sinus pain/pressure, Short of breath, Other - Body aches Similar symptoms previously: Yes Recently seen / treated by doctor: No - Related Data Allergies/Adverse Reactions: No Known Allergies Allergy (Verified 08/16/17 01:21) Past Medical History - General Information source: Patient - Social History Smoking Status: Current Every Day Smoker Cigarette use (# per day): Yes Chew tobacco use (# tins/day): No Smoking Education Provided: Yes - 4 minutes Frequency of alcohol use: Occasional Drug Abuse: None Lives with: Friend Family History: Reviewed & Not Pertinent Patient has suicidal ideation: No Patient has homicidal ideation: No - Past Medical History Cardiac Medical History: Reports: Hx Hypertension Pulmonary Medical History: Reports: Hx Asthma EENT Medical History: Reports: None Neurological Medical History: Reports: None Endocrine Medical History: Reports: Hx Diabetes Mellitus Type 2 Renal/ Medical History: Reports: None Malignancy Medical History: Reports: None GI Medical History: Reports: None Musculoskeletal Medical History: Reports None Skin Medical History: Reports None Psychiatric Medical History: Reports: None Traumatic Medical History: Reports: None Infectious Medical History: Reports: None Past Surgical History: Reports: Hx Gynecologic Surgery - dnc, Hx Oral Surgery - Immunizations Immunizations up to date: Yes Hx Diphtheria, Pertussis, Tetanus Vaccination: Yes Review of Systems - Review of Systems Constitutional: Chills, Fever, Recent illness EENT: Nose congestion, Nose discharge, Sinus pressure, Sinus discharge, Throat pain Cardiovascular: No symptoms reported Respiratory: Cough, Short of breath, Other - Pain with cough Gastrointestinal: No symptoms reported Genitourinary: No symptoms reported Female Genitourinary: No symptoms reported Musculoskeletal: No symptoms reported Skin: No symptoms reported Hematologic/Lymphatic: No symptoms reported Neurological/Psychological: No symptoms reported Physical Exam - Vital signs Vitals: Temp Pulse Resp BP Pulse Ox 99.0 F 113 H 18 145/78 H 96 07/21/18 17:07 07/21/18 17:07 07/21/18 17:07 07/21/18 17:07 07/21/18 17:07 Interpretation: Normal - General General appearance: Appears well, Alert - HEENT Head: Normocephalic, Atraumatic Eyes: Normal Pupils: PERRL Ears: Normal External canal: Normal Tympanic membrane: Normal Sinus: Normal Nasal: Purulent discharge, Swelling Mouth/Lips: Normal Mucous membranes: Normal Pharynx: Post nasal drainage Neck: Normal - Respiratory Respiratory status: No respiratory distress Chest status: Nontender Breath sounds: Normal Chest palpation: Normal - Cardiovascular Rhythm: Regular Heart sounds: Normal auscultation Murmur: No - Abdominal Inspection: Normal Distension: No distension Bowel sounds: Normal Tenderness: Nontender Organomegaly: No organomegaly - Back Back: Normal, Nontender - Extremities General upper extremity: Normal inspection, Nontender, Normal color, Normal ROM , Normal temperature General lower extremity: Normal inspection, Nontender, Normal color, Normal ROM , Normal temperature, Normal weight bearing. No: Maryjane's sign - Neurological Neuro grossly intact: Yes Cognition: Normal Orientation: AAOx4 Millie Coma Scale Eye Opening: Spontaneous [place] Coma Scale Verbal: Oriented Millie Coma Scale Motor: Obeys Commands [place] Coma Scale Total: 15 Speech: Normal Motor strength normal: LUE, RUE, LLE, RLE Sensory: Normal - Psychological Associated symptoms: Normal affect, Normal mood - Skin Skin Temperature: Warm Skin Moisture: Dry Skin Color: Normal Course - Re-evaluation Re-evalutation: 07/21/18 21:48 Assessment consistent with an upper respiratory infection. Patient is alert and oriented respirations regular and unlabored. Patient has had symptoms for 2 days. All of her roommates have a cold. Patient was treated with medications in the emergency room and instructed on use of medications at home. Patient to follow-up with her primary doctor in the next 2-3 days. - Vital Signs Vital signs: Temp Pulse Resp BP Pulse Ox 99.7 F 102 H 18 145/85 H 97 07/21/18 18:53 07/21/18 18:53 07/21/18 18:53 07/21/18 18:53 07/21/18 18:53 Discharge - Discharge Clinical Impression: URI (upper respiratory infection) Qualifiers: URI type: unspecified URI Qualified Code(s): J06.9 - Acute upper respiratory infection, unspecified Condition: Stable Disposition: HOME, SELF-CARE Additional Instructions: UPPER RESPIRATORY ILLNESS: You have a viral infection of the respiratory passages -- a "cold." This common infection causes nasal congestion, drainage, and often sore throat and cough. It is highly contagious. The disease usually lasts about 10 to 14 days. There is no "cure" for the viral infection -- it must run its course. If there is a complication, such as bacterial infection in the nose, sinuses, middle ear, or bronchial tubes, antibiotics may be required. The antibiotics won't affect the virus. Drink plenty of fluids. A humidifier may help. An expectorant medication or decongestant may make you more comfortable. Use acetaminophen or ibuprofen for fever or aches. See the doctor if fever persists over two days, if there is any significant worsening of your symptoms, or if you simply fail to improve as expected. COUGH-SUPPRESSANT & EXPECTORANT MEDICATION: You are to use a cough medication as needed for relief of symptoms. This medicine is a combination of an expectorant (to make the mucous thinner and more easily "coughed up") and a cough suppressant (to reduce the frequency of coughing). The cough-suppressant medicine is related to narcotics. You may experience mild nausea and sleepiness. Some patients who are very sensitive to narcotics may have stomach pain from this medicine. Taking the medicine with food reduces these side effects. Do not drive or work with machinery until you know how this medicine affects you. The expectorant should have no side effects. Iodine-containing expectorants (such as organidin) should not be taken by persons with active thyroid disease unless approved by your doctor. Call the doctor if you develop shortness of breath, hives, rash, itching, lightheadedness, or severe nausea and vomiting. USE OF ACETAMINOPHEN (Tylenol): Acetaminophen may be taken for pain relief or fever control. It's much safer than aspirin, offering a wider range of "safe" dosages. It is safe during . Some brand names are Tylenol, Panadol, Datril, Anacin 3, Tempra, and Liquiprin. Acetaminophen can be repeated every four hours. The following are maximum recommended dosages: >89 pounds or adults 650 mg to 900 mg Acetaminophen can be repeated every four hours. Maximum dose not to exceed 4000 mg a day. SMOKING: If you smoke, you should stop smoking. The tar and chemicals in cigarette smoke are harmful. Smoking has been shown to cause: emphysema chronic bronchitis lung cancer mouth and throat cancer stomach and pancreas cancer premature aging defects In addition, smoking increases ear and lung infections in children of smokers. You were treated with Claritin 10 mg, Mucinex 600 mg, ibuprofen 800 mg, in the emergency room for your cough cold congestion. Please follow-up with your primary care doctor for your cough cold congestion symptoms. You can also try Flonase which is [id number] use 1 spray each nostril twice a day. Can also use salt and soda solution gargles which will remove the drainage from the back your throat. Salt and soda solution 1 quart of water 1 tablespoon of salt 1 teaspoon of baking soda Mixed 3 ingredients together and boil for 1 minute Placed in a covered quart jar Use 1/2 ounce of cold solution to gargle 3 times a day FOLLOW-UP CARE: If you have been referred to a physician for follow-up care, call the physician s office for an appointment as you were instructed or within the next two days. If you experience worsening or a significant change in your symptoms, notify the physician immediately or return to the Emergency Department at any time for re-evaluation. Forms: Elevated Blood Pressure, Smoking Cessation Education, Return to Work Referrals: LEONELA JACOBS PA-C [Primary Care Provider] - Follow up as needed
== END 2018-07-21 19:18 | disposition home or self-care (01) ==
LOC: ER 16:58
DX: J06.9 Acute upper respiratory infection, unspecified (principal); R09.89 Other specified symptoms and signs involving the circulatory and respiratory systems; M79.10 Myalgia, unspecified site; R68.83 Chills (without fever); F17.210 Nicotine dependence, cigarettes, uncomplicated; E11.9 Type 2 diabetes mellitus without complications; I10 Essential (primary) hypertension
CPT/HCPCS: 99283

== ENCOUNTER → 2019-05-25 | Outpatient (CLI) | payer BC ==
--- NOTE | 2019-05-26 09:59 | RADIOLOGY REPORT (SQ) ---
EXAM DESCRIPTION: CHEST 2 VIEWS COMPLETED DATE/TIME: 05/25/2019 6:45 pm REASON FOR STUDY: Z01.818 ENCOUNTER FOR OTHER PREPROCEDURAL EXAMINATION COMPARISON: 01/09/2017 EXAM PARAMETERS: NUMBER OF VIEWS: two views TECHNIQUE: Digital Frontal and Lateral radiographic views of the chest acquired. RADIATION DOSE: NA LIMITATIONS: none FINDINGS: LUNGS AND PLEURA: No opacities, masses or pneumothorax. No pleural effusion. MEDIASTINUM AND HILAR STRUCTURES: No masses or contour abnormalities. HEART AND VASCULAR STRUCTURES: Heart normal size. No evidence for failure. BONES: No acute findings. HARDWARE: None in the chest. OTHER: Left nipple ring, new finding since prior study. IMPRESSION: 1. NO ACUTE RADIOGRAPHIC FINDING IN THE CHEST. TECHNICAL DOCUMENTATION: JOB ID: [id number] [employer]- All Rights Reserved Reading location - IP/workstation name: [email or web address]
== END ==
LOC: RAD 18:17
PROVIDERS: ATTEND Physician Assistant
DX: Z01.818 Encounter for other preprocedural examination (principal)
CPT/HCPCS: 71046

== ENCOUNTER → 2019-05-26 | Outpatient (CLI) | payer BC ==
--- NOTE | 2019-05-26 23:50 | EKG REPORT ---
SEVERITY:- ABNORMAL ECG - SINUS RHYTHM ABNORMAL T, CONSIDER ISCHEMIA, INFERIOR LEADS : Confirmed by: Porsha Jensen MD 26-May-2019 23:49:42
== END ==
LOC: OD 14:11
PROVIDERS: ATTEND Physician Assistant
DX: Z01.818 Encounter for other preprocedural examination (principal)
CPT/HCPCS: 93005; 93010